=== PATIENT | female | born 1935 | race Caucasian/White ===

== ENCOUNTER → 2016-11-15 | Outpatient (CLI) | payer OTHER ==
[2015-10-11 14:00] VITALS: BP 161/72
[2016-11-20 06:08] LABS: COPPER LEVEL 124 ug/dL (80-155)
[2016-11-20 06:09] LABS: ZINC PLASMA 77 ug/dL (60-120)
== END ==
LOC: LAB 15:11
PROVIDERS: ATTEND Obstetrics & Gynecology Obstetrics
DX: F41.8 Other specified anxiety disorders (principal)
CPT/HCPCS: 36415; 82525; 84630

== ENCOUNTER → 2017-01-28 | Outpatient (CLI) | payer OTHER ==
[2015-10-11 14:00] VITALS: BP 161/72
--- NOTE | 2017-01-29 16:23 | MG ---
HISTORY: SCREENING Comparison: January 26, 2015 and February 02, 2016 FINDINGS: Bilateral CC and MLO projections of the right and left breast were obtained. Extremely dense fibrogl andular tissue is seen to be present without significant interval change. No suspicious architectura l distortion, mass or clustered microcalcifications can be observed to suggest malignancy. No skin t hickening or nipple retraction is appreciated. No pathological lymphadenopathy can be identified. B enign-appearing calcifications are noted within the right and left breast. IMPRESSION: NO RADIOGRAPHIC EVIDENCE OF MALIGNANCY. ACR CATEGORY 2 - benign findings. FOLLOW-UP EXAM 1 YEAR. Diagnostic CAD was utilized and reviewed. * 0 (ZERO) - ASSESSMENT INCOMPLETE; ADDITIONAL IMAGING IS NEEDED. * 1/1 (ONE) - NEGATIVE. * 2/II (TWO) - BENIGN FINDINGS. * 3/III (THREE) - PROBABLY BENIGN FINDING; SHORT INTERVAL FOLLOW-UP SUGGESTED. * 4/IV (FOUR) - SUSPICIOUS ABNORMALITY; BIOPSY SHOULD BE CONSIDERED. * 5/V - HIGHLY SUSPICIOUS OF MALIGNANCY; BIOPSY SHOULD BE PERFORMED. A NEGATIVE X-RAY REPORT SHOULD NOT DELAY BIOPSY IF A DOMINANT OR CLINICALLY SUSPICIOUS MASS IS PRESENT; 4 TO 8 PERCENT OF CANCERS ARE NOT IDENTIFIED BY X-RAY. A NEGA TIVE REPORT MAY REINFORCE THE CLINICAL IMPRESSION. ADENOSIS AND DENSE BREASTS MAY OBSCURE AN UNDERLY ING NEOPLASM. Reported By:
== END ==
LOC: RAD 14:48
PROVIDERS: ATTEND Specialist
DX: Z12.31 Encounter for screening mammogram for malignant neoplasm of breast (principal)
CPT/HCPCS: 77067

== ENCOUNTER → 2017-03-21 | Outpatient (CLI) | payer OTHER ==
[2015-10-11 14:00] VITALS: BP 161/72
[2017-03-21 09:08] LABS: BASOPHILS # (AUTO) 0.1 X10^3/uL (0.0-0.1); EOSINOPHILS # (AUTO) 0.2 x10^3/uL (0.0-0.2); HEMATOCRIT 33.7 % (36.0-47.0); HEMOGLOBIN 11.6 g/dL (12.0-16.0); LYMPHOCYTES # (AUTO) 1.4 X10^3/uL (1.3-2.9); LYMPHOCYTES % (AUTO) 35.8 % (21.0-51.0); MEAN CORPUSCULAR HEMOGLOBIN 32.5 pg (27.0-34.0); MEAN CORPUSCULAR HGB CONC 34.3 g/dL (33.0-35.0); MEAN CORPUSCULAR VOLUME 94.7 fL (80.0-100.0); MEAN PLATELET VOLUME 8.2 fL (7.4-11.0); MONOCYTES # (AUTO) 0.4 x10^3/uL (0.3-0.8); MONOCYTES % (AUTO) 9.2 % (0.0-13.0); NEUTROPHILS # (AUTO) 1.9 x10^3/uL (2.2-4.8); PLATELET COUNT 173 X10^3/uL (150.0-450.0); RED BLOOD COUNT 3.56 X10^6/uL (3.5-5.4); WHITE BLOOD COUNT 3.9 X10^3/uL (3.6-10.0)
[2017-03-21 09:28] LABS: ALANINE AMINOTRANSFERASE 30 Units/L (12-78); ALBUMIN 4.2 g/dL (3.4-5.0); ALKALINE PHOSPHATASE 76 Units/L (46-116); ASPARTATE AMINO TRANSFERASE 19 Units/L (15-37); BLOOD UREA NITROGEN 12 mg/dL (7-18); CALCIUM 8.7 mg/dL (8.5-10.1); CARBON DIOXIDE 29.4 mmol/L (21-32); CHLORIDE 105 mmol/L (98-107); CHOLESTEROL 183 mg/dL (0-200); CREATININE 0.99 mg/dL (0.55-1.02); HDL CHOLESTEROL 93 mg/dL (40-60); SODIUM 141 mmol/L (136-145); TOTAL PROTEIN 6.8 g/dL (6.4-8.2); TRIGLYCERIDES 41 mg/dL (0-150); TSH (3RD GENERATION) 0.816 uIU/mL (0.358-3.74); eGFR BLACK RACES > 60 (>60); eGFR NON BLACK RACES 57 (>60)
[2017-03-21 09:43] LABS: HEMOGLOBIN A1C 5.6 %
== END ==
LOC: LAB 08:37
PROVIDERS: ATTEND Obstetrics & Gynecology Obstetrics
DX: R63.8 Other symptoms and signs concerning food and fluid intake (principal); E03.8 Other specified hypothyroidism
CPT/HCPCS: 36415; 80053; 80061; 83036; 84443; 84481; 84482; 85025

== ENCOUNTER → 2017-06-18 | Outpatient (CLI) | payer OTHER ==
[2015-10-11 14:00] VITALS: BP 161/72
--- NOTE | 2017-06-18 14:31 | CT ---
CT pelvis without contrast Indication: Left hip pain, fall this morning. Comparison: None Technique: CT images of the pelvis were obtained without contrast. Automatic exposure control was uti lized. Findings: There is acute/subacute functional fracture of the lateral left sacral ala, without signifi cant displacement. There is also nondisplaced fracture of the left puboacetabular junction and 2 part minimally displaced fracture of the left inferior pubic ramus. The pubic symphysis and SI joints are intact, demonstrating minimal degenerative change. The bones are diffusely osteopenic. There is goyo ed lower lumbar spondylosis, especially along the left lateral aspect of the L4-5 disc space. The fem oral heads are normally positioned within the acetabula. No acute proximal femur fracture. Moderate c olonic stool burden is noted, suggesting constipation. Impression: Acute/subacute fractures of the left sacral ala, left puboacetabular junction, and left inferior pubi c ramus. No acute hip fracture. Generalized osteopenia. Degenerative changes as above. Reported By:
== END | disposition home or self-care (01) ==
LOC: RAD 13:49
PROVIDERS: ATTEND Obstetrics & Gynecology Obstetrics
DX: M25.552 Pain in left hip (principal); S32.492A Other specified fracture of left acetabulum, initial encounter for closed fracture; S32.592A Other specified fracture of left pubis, initial encounter for closed fracture; S32.19XA Other fracture of sacrum, initial encounter for closed fracture; X58.XXXA Exposure to other specified factors, initial encounter; M85.88 Other specified disorders of bone density and structure, other site
CPT/HCPCS: 72192

== ENCOUNTER 2024-10-09 06:24 | Observation (INO) ==
[2024-10-09 06:55] LABS: RED CELL DISTRIBUTION WIDTH 13.0 % (11.6-16.5)
[2024-10-09 06:58] LABS: MEAN PLATELET VOLUME 8.6 fL (7.4-11.0)
[2024-10-09 07:01] LABS: INR 1.07 (0.8-1.3)
[2024-10-09 07:08] LABS: CREATININE 0.95 mg/dL (0.55-1.02); eGFR NON BLACK RACES 59 (>60)
--- NOTE | 2024-10-09 07:22 | EKG ---
Test Reason : weakness Blood Pressure : */* mmHG Vent. Rate : 75 BPM Atrial Rate : 75 BPM P-R Int : 170 ms QRS Dur : 86 ms QT Int : 386 ms P-R-T Axes : 66 72 64 degrees QTc Int : 431 ms Normal sinus rhythm Moderate voltage criteria for LVH, may be normal variant ( Sokolow-Jackson , [place] product ) Nonspecific ST abnormality Abnormal ECG When compared with ECG of 26-MAR-2022 19:24, ST no longer depressed in Anterior leads Nonspecific T wave abnormality no longer evident in Inferior leads T wave inversion no longer evident in Lateral leads Confirmed by Alberto Aguayo MD ([id number]) on 10/09/2024 4:13:10 PM Referred By: Confirmed By: Alberto Aguayo MD
--- NOTE | 2024-10-09 07:22 | DR.GENAD ---
HPI <David Knapp - Last Filed: 10/09/24 07:55> Time Seen Time Seen by Provider: 10/09/24 07:20 PCP Primary Care Physician: Dr. Tijerina Complaint/Symptoms Chief Complaint Doctors Comments: Patient has increased weakness and decreased mobility over the past 1 to 2-month patient has had frequent falls and sometimes maybe a year or 2 ago she has had right hip replacement seem like she has been having issues with that. In 2 her she has been not ambulatory over the past 1 to 2 months where she been crawling around in the house again from 1 place to another. She states she has fallen and hit her head in the past. Chief Complaint:: Pt c/o increased weakness with decreased mobility over the past 1-2 months. Pt has also had frequent falls. Pt lives with her elderly sister who is unable to care for her. Pt states that she has been crawling to the bathroom as she is unable to walk. Pt c/o pain in the right groin that has been going on for about a month. Pt states that she has hit her head and had loss of consciousness during some of her falls over the past month. COVID-19 Coronavirus risk:travel/contact w/high risk person: No Has patient experienced Coronavirus symptoms: No Source History Provided: Patient and EMS Mode of Arrival Mode of Arrival: EMS Timing Onset of Chief Complaint: 10/09/24 PMH <David Knapp - Last Filed: 10/09/24 07:55> PMH Past Medical History: Yes Past Medical History: Anxiety, Arthritis, Depression, Diabetes, GERD and Hypothyroidism Past Medical History Comment: uterine cancer, skin cancer, restless leg syndrome, insomnia Past Surgical History: Yes Surgical History: Joint Replacement and Other Past Surgical History Comment: right hip replacement, tubal ligation, skin cancer removed Family History History of Family Medical Conditions: Yes Family Medical History: Diabetes Mellitus and Cancer Family Medical History Comment: depression Social History Does patient currently use any type of tobacco product: No Have you used tobacco products in the last 12 months: No Type of Tobacco Use: None Does any household member use tobacco: No Alcohol Use: None Do you use any recreational Drugs:: No Lives With: Family Lives Where: Home Travel Risk Coronavirus risk:travel/contact w/high risk person: No Has patient experienced Coronavirus symptoms: No Infectious screening In the last 2 months have you had wt loss of >10#?: NO Have you had fever, night sweats or hemotysis?: No Have you traveled outside the country in the last 6 months?: No Isolation: Standard ROS <David Knapp - Last Filed: 10/09/24 07:55> Review of Systems Constitutional: Other (total body pain but mostly r hip/pelvic pain) Eyes: No Symptoms Reported ENTM: No Symptoms Reported Respiratoy: No Symptoms Reported Cardiovascular: No Symptoms Reported Gastrointestinal/Abdominal: No Symptoms Reported Genitourinary: No Symptoms Reported Neurological: No Symptoms Reported Musculoskeletal: Joint Pain, Neck Pain and Hip (r hip pain) Integumentary: No Symptoms Reported Hematologic/Lymphatic: No Symptoms Reported Endocrine: No Symptoms Reported Psychiatric: No Symptoms Reported All Other Systems: Reviewed and Negative PE <David Knapp - Last Filed: 10/09/24 07:55> Vital Signs Vitals: Vital Signs Temperature 97.9 F Pulse Rate 74 Pulse Rate 75 Pulse Rate 75 Pulse Rate 77 Pulse Rate 77 Pulse Rate 81 Respiratory Rate 20 Blood Pressure 175/76 Blood Pressure 151/68 O2 Sat by Pulse Oximetry 100 O2 Sat by Pulse Oximetry 100 O2 Sat by Pulse Oximetry 100 O2 Sat by Pulse Oximetry 100 O2 Sat by Pulse Oximetry 100 O2 Sat by Pulse Oximetry 100 General Limitations: Physical Limitation (due to r hip pain and lethargy) General Appearance: Alert and In Distress (moderate distress) Head Head Exam: Normal Inspection, Atraumatic and Normocephalic Eyes Eye exam: Normal Appearance ENT ENT Exam: Normal Exam External Ear Exam: Normal External Inspection TM/Canal Exam: Bilateral: Normal Nose Exam: Normal Nose Exam Mouth Exam: Normal Inspection Throat Exam: Normal Inspection Neck Neck Exam: Normal Inspection Chest Chest Inspection: Normal Inspection and Symmetric Chest Wall Rise Abdominal Exam Abdominal Exam: Normal Inspection, Normal Bowel Sounds and Soft Extremities Extremities Exam: Normal Inspection and Full ROM Back Back Exam: Normal Inspection and Full ROM Neurologic Neurological Exam: Alert and Oriented X3 Psychiatric Psychiatric Exam: Normal Affect Skin Skin Exam: Warm, Dry, Intact and Other (scabbed bruises on bilateral shins) <Ant Retana - Last Filed: 10/09/24 08:30> Vital Signs Vitals: Vital Signs Temperature 97.9 F Pulse Rate 74 Pulse Rate 75 Pulse Rate 75 Pulse Rate 77 Pulse Rate 77 Pulse Rate 81 Respiratory Rate 20 Blood Pressure 175/76 Blood Pressure 151/68 O2 Sat by Pulse Oximetry 100 O2 Sat by Pulse Oximetry 100 O2 Sat by Pulse Oximetry 100 O2 Sat by Pulse Oximetry 100 O2 Sat by Pulse Oximetry 100 O2 Sat by Pulse Oximetry 100 MDM <David Knapp - Last Filed: 10/09/24 07:55> Differential Diagnosis Differential Diagnosis: contusion to head and neck,contusion to r hip,cervical strain,dehydra,uti COURSE <David Knapp - Last Filed: 10/09/24 07:55> Treatment Treatment: This patient remained relatively stable during ER visit. We did do CT scan of her brain that was negative for fracture, get CT scan of her C-spine that was negative for fracture but there was straightening of the lordosis suggested a muscle spasm. The patient has CT scan abdomen pelvis that shows a large colonic stool burden with probable constipation and evidence of subacute healing right superior and inferior pubic ramus fractures. Patient had a urinalysis that was negative EKG showed sinus rhythm. This patient was signed out to Dr. Ellis. <Ant Retana - Last Filed: 10/09/24 08:30> Treatment Treatment: This patient remained relatively stable during ER visit. We did do CT scan of her brain that was negative for fracture, get CT scan of her C-spine that was negative for fracture but there was straightening of the lordosis suggested a muscle spasm. The patient has CT scan abdomen pelvis that shows a large colonic stool burden with probable constipation and evidence of subacute healing right superior and inferior pubic ramus fractures. Patient had a urinalysis that was negative EKG showed sinus rhythm. This patient was signed out to Dr. Ellis. Mazin -patient signed out to me by Dr. Knapp. Reviewed results of imaging and labs and discussed results with patient. Patient failing to thrive at home with major mobility issues. Patient agreeable to be admitted for placement for rehab. Consultation Consultation Comments: Discussed case with Dr. Tijerina and he is agreeable to admission ROR <David Knapp - Last Filed: 10/09/24 07:55> Labs Reviewed 10/09/24 06:42 10/09/24 06:42 Laboratory: WBC 5.0 X10^3/uL (3.6-10.0) 10/09/24 06:42 RBC 3.34 X10^6/uL (3.5-5.4) L 10/09/24 06:42 Hgb 11.3 g/dL (12.0-16.0) L 10/09/24 06:42 Hct 32.3 % (36.0-47.0) L 10/09/24 06:42 MCV 96.6 fL (80.0-100.0) 10/09/24 06:42 MCH 33.9 pg (27.0-34.0) 10/09/24 06:42 MCHC 35.1 g/dL (33.0-35.0) H 10/09/24 06:42 RDW 13.0 % (11.6-16.5) 10/09/24 06:42 Plt Count 235 X10^3/uL (150.0-450.0) 10/09/24 06:42 MPV 8.6 fL (7.4-11.0) 10/09/24 06:42 Neut % (Auto) 57.7 % (42.0-75.0) 10/09/24 06:42 Lymph % (Auto) 27.0 % (21.0-51.0) 10/09/24 06:42 [place] % (Auto) 9.5 % (0.0-13.0) 10/09/24 06:42 Eos % (Auto) 3.7 % (0.9-2.9) H 10/09/24 06:42 Baso % (Auto) 2.1 % (0.2-1.0) H 10/09/24 06:42 Neut # (Auto) 2.9 x10^3/uL (2.2-4.8) 10/09/24 06:42 Lymph # (Auto) 1.3 X10^3/uL (1.3-2.9) 10/09/24 06:42 [place] # (Auto) 0.5 x10^3/uL (0.3-0.8) 10/09/24 06:42 Eos # (Auto) 0.2 x10^3/uL (0.0-0.2) 10/09/24 06:42 Baso # (Auto) 0.1 X10^3/uL (0.0-0.1) 10/09/24 06:42 Absolute Nucleated RBC 0.0 /100WBC 10/09/24 06:42 PT 14.0 SECONDS (11.8-14.3) 10/09/24 06:42 INR Target Range - 10/09/24 06:42 INR 1.07 (0.8-1.3) 10/09/24 06:42 APTT 28.1 SECONDS (22.9-36.5) 10/09/24 06:42 PTT Comment - 10/09/24 06:42 Sodium 140 mmol/L (136-145) 10/09/24 06:42 Corrected Sodium TNP 10/09/24 06:42 Potassium 4.1 mmol/L (3.5-5.1) 10/09/24 06:42 Chloride 106 mmol/L (98-107) 10/09/24 06:42 Carbon Dioxide 30.0 mmol/L (21-32) 10/09/24 06:42 BUN 13 mg/dL (7-18) 10/09/24 06:42 Creatinine 0.95 mg/dL (0.55-1.02) 10/09/24 06:42 Est GFR (MDRD) Af Amer > 60 (>60) 10/09/24 06:42 Est GFR (MDRD) Non-Af 59 (>60) 10/09/24 06:42 Glucose 87 mg/dL (65-99) 10/09/24 06:42 Calcium 9.1 mg/dL (8.5-10.1) 10/09/24 06:42 Corrected Calcium TNP 10/09/24 06:42 Total Bilirubin 0.30 mg/dL (0.2-1.0) 10/09/24 06:42 AST 28 Units/L (15-37) 10/09/24 06:42 ALT 33 Units/L (12-78) 10/09/24 06:42 Alkaline Phosphatase 148 Units/L (46-116) H 10/09/24 06:42 Creatine Kinase 180 Units/L (26-192) 10/09/24 06:42 Troponin I High Sens 6.3 ng/L (4.0-60.0) 10/09/24 06:42 Total Protein 7.2 g/dL (6.4-8.2) 10/09/24 06:42 Albumin 3.9 g/dL (3.4-5.0) 10/09/24 06:42 Globulin 3.3 g/dL (2.5-4.5) 10/09/24 06:42 Albumin/Globulin Ratio 1.2 Ratio (1.1-2.1) 10/09/24 06:42 Specimen Type Clean catch urine 10/09/24 07:20 Urine Color Yellow (YELLOW) 10/09/24 07:20 Urine Appearance Clear (CLEAR) 10/09/24 07:20 Urine pH 7.0 (5.0 - 8.0) 10/09/24 07:20 Ur Specific [place] 1.010 (1.000-1.030) 10/09/24 07:20 Urine Protein 1+ (NEGATIVE) 10/09/24 07:20 Urine Glucose (UA) Negative (NEGATIVE) 10/09/24 07:20 Urine Ketones Negative (NEGATIVE) 10/09/24 07:20 Urine Blood Negative (NEGATIVE) 10/09/24 07:20 Urine Nitrite Negative (NEGATIVE) 10/09/24 07:20 Urine Bilirubin Negative (NEGATIVE) 10/09/24 07:20 Urine Urobilinogen Normal (NORMAL) 10/09/24 07:20 Ur Leukocyte Esterase Negative (NEGATIVE) 10/09/24 07:20 Urine RBC None seen /HPF (0-3) 10/09/24 07:20 Urine WBC 0-2 /HPF (0-5) 10/09/24 07:20 Ur Squamous Epith Cells Rare /HPF (NEGATIVE) 10/09/24 07:20 Urine Bacteria Negative /HPF (NEGATIVE) 10/09/24 07:20 Ur Culture Indicated? No/not indicated 10/09/24 07:20 <Ant Retana - Last Filed: 10/09/24 08:30> Labs Reviewed Laboratory: WBC 5.0 X10^3/uL (3.6-10.0) 10/09/24 06:42 RBC 3.34 X10^6/uL (3.5-5.4) L 10/09/24 06:42 Hgb 11.3 g/dL (12.0-16.0) L 10/09/24 06:42 Hct 32.3 % (36.0-47.0) L 10/09/24 06:42 MCV 96.6 fL (80.0-100.0) 10/09/24 06:42 MCH 33.9 pg (27.0-34.0) 10/09/24 06:42 MCHC 35.1 g/dL (33.0-35.0) H 10/09/24 06:42 RDW 13.0 % (11.6-16.5) 10/09/24 06:42 Plt Count 235 X10^3/uL (150.0-450.0) 10/09/24 06:42 MPV 8.6 fL (7.4-11.0) 10/09/24 06:42 Neut % (Auto) 57.7 % (42.0-75.0) 10/09/24 06:42 Lymph % (Auto) 27.0 % (21.0-51.0) 10/09/24 06:42 [place] % (Auto) 9.5 % (0.0-13.0) 10/09/24 06:42 Eos % (Auto) 3.7 % (0.9-2.9) H 10/09/24 06:42 Baso % (Auto) 2.1 % (0.2-1.0) H 10/09/24 06:42 Neut # (Auto) 2.9 x10^3/uL (2.2-4.8) 10/09/24 06:42 Lymph # (Auto) 1.3 X10^3/uL (1.3-2.9) 10/09/24 06:42 [place] # (Auto) 0.5 x10^3/uL (0.3-0.8) 10/09/24 06:42 Eos # (Auto) 0.2 x10^3/uL (0.0-0.2) 10/09/24 06:42 Baso # (Auto) 0.1 X10^3/uL (0.0-0.1) 10/09/24 06:42 Absolute Nucleated RBC 0.0 /100WBC 10/09/24 06:42 PT 14.0 SECONDS (11.8-14.3) 10/09/24 06:42 INR Target Range - 10/09/24 06:42 INR 1.07 (0.8-1.3) 10/09/24 06:42 APTT 28.1 SECONDS (22.9-36.5) 10/09/24 06:42 PTT Comment - 10/09/24 06:42 Sodium 140 mmol/L (136-145) 10/09/24 06:42 Corrected Sodium TNP 10/09/24 06:42 Potassium 4.1 mmol/L (3.5-5.1) 10/09/24 06:42 Chloride 106 mmol/L (98-107) 10/09/24 06:42 Carbon Dioxide 30.0 mmol/L (21-32) 10/09/24 06:42 BUN 13 mg/dL (7-18) 10/09/24 06:42 Creatinine 0.95 mg/dL (0.55-1.02) 10/09/24 06:42 Est GFR (MDRD) Af Amer > 60 (>60) 10/09/24 06:42 Est GFR (MDRD) Non-Af 59 (>60) 10/09/24 06:42 Glucose 87 mg/dL (65-99) 10/09/24 06:42 Calcium 9.1 mg/dL (8.5-10.1) 10/09/24 06:42 Corrected Calcium TNP 10/09/24 06:42 Total Bilirubin 0.30 mg/dL (0.2-1.0) 10/09/24 06:42 AST 28 Units/L (15-37) 10/09/24 06:42 ALT 33 Units/L (12-78) 10/09/24 06:42 Alkaline Phosphatase 148 Units/L (46-116) H 10/09/24 06:42 Creatine Kinase 180 Units/L (26-192) 10/09/24 06:42 Troponin I High Sens 6.3 ng/L (4.0-60.0) 10/09/24 06:42 Total Protein 7.2 g/dL (6.4-8.2) 10/09/24 06:42 Albumin 3.9 g/dL (3.4-5.0) 10/09/24 06:42 Globulin 3.3 g/dL (2.5-4.5) 10/09/24 06:42 Albumin/Globulin Ratio 1.2 Ratio (1.1-2.1) 10/09/24 06:42 Specimen Type Clean catch urine 10/09/24 07:20 Urine Color Yellow (YELLOW) 10/09/24 07:20 Urine Appearance Clear (CLEAR) 10/09/24 07:20 Urine pH 7.0 (5.0 - 8.0) 10/09/24 07:20 Ur Specific [place] 1.010 (1.000-1.030) 10/09/24 07:20 Urine Protein 1+ (NEGATIVE) 10/09/24 07:20 Urine Glucose (UA) Negative (NEGATIVE) 10/09/24 07:20 Urine Ketones Negative (NEGATIVE) 10/09/24 07:20 Urine Blood Negative (NEGATIVE) 10/09/24 07:20 Urine Nitrite Negative (NEGATIVE) 10/09/24 07:20 Urine Bilirubin Negative (NEGATIVE) 10/09/24 07:20 Urine Urobilinogen Normal (NORMAL) 10/09/24 07:20 Ur Leukocyte Esterase Negative (NEGATIVE) 10/09/24 07:20 Urine RBC None seen /HPF (0-3) 10/09/24 07:20 Urine WBC 0-2 /HPF (0-5) 10/09/24 07:20 Ur Squamous Epith Cells Rare /HPF (NEGATIVE) 10/09/24 07:20 Urine Bacteria Negative /HPF (NEGATIVE) 10/09/24 07:20 Ur Culture Indicated? No/not indicated 10/09/24 07:20 Opioid <David Knapp - Last Filed: 10/09/24 07:55> Opioid Risk Tool Age (Juma box if 16-45): No History of Preadolescent Sexual Abuse: No Total: 0 Total Score Risk Category: Low Risk Copyright: Grady TAYLOR predicting aberrant behaviors <Ant Retana - Last Filed: 10/09/24 08:30> Opioid Risk Tool Total: 0 Total Score Risk Category: Low Risk Discharge Plan Diagnosis Discharge Problem: Adult failure to thrive Closed pelvic fracture Qualifiers: Encounter type: initial encounter Pelvic bone location: pubis Fracture alignment: nondisplaced Discharge Plan Patient Disposition: 09 ADMITTED INPATIENT Condition: Stable Prescriptions: No Action trazodone 50 mg tablet 1 - 3 tab PO QPM PRN meloxicam 15 mg tablet 15 mg PO QDAY gabapentin 800 mg tablet 800 mg PO QID ropinirole 0.5 mg tablet 0.5 mg PO BID topiramate 100 mg tablet 100 mg PO BID bupropion HCl 200 mg tablet sustained-release 12 hr 200 mg PO BID Health Concerns: Post Hospitalization: new medications and changes needed to prevent readmission or further decline. Pt educated and given instructions on all concerns. Plan of Treatment: Continue with present treatment and follow up plan. Pt is to keep follow up appointment as instructed and take medications as ordered. Orders to Discharge Patient Discharge Orders: Transfer (Routine); Ordered 10/09/24 Ordered By: Ant Retana Follow ups/Referrals Follow ups/Referrals: NELLA ITJERINA [Primary Care Provider, MEDICAL] - 3 days Instructions Stand Alone Forms: Find Help Web Site, Post Hospital Follow Up Care Print Language: MOROCCAN
[2024-10-09 07:29] LABS: BLOOD/HEMOGLOBIN,URINE NEGATIVE (NEGATIVE); LEUKOCYTE ESTERASE ,URINE NEGATIVE (NEGATIVE); NITRITES,URINE NEGATIVE (NEGATIVE)
--- NOTE | 2024-10-09 07:33 | CT ---
EXAMINATION: CERVICAL SPINE W/O CON HISTORY: fall with LOC; . COMPARISON STUDY: None. TECHNIQUE: Images were obtained in the axial plane through the cervical spine. Sagittal and coronal reformatted images were obtained as well. The above CT scan was done with automated exposure control and the mA and kV was adjusted to obtain quality images according to patient size. FINDINGS: Motion artifact. Vertebral body heights are maintained throughout. 2 mm of anterolisthesis of C3 on C4 is related to facet arthropathy. Prevertebral soft tissues are maintained. Paraspinal soft tissues are unremarkable. There are no burst type fractures. There is no abnormal density to suggest epidural hematoma. There is no significant stenosis. There is no noncontrast CT evidence for traumatically herniated disc. No osteolytic or osteoblastic lesions are noted. There are anterior osteophytes with disc space narrowing from C3-C7. Facet arthropathy with uncovertebral joint hypertrophy and neural foraminal narrowing of varying degrees at multiple levels. Straightening of lordosis suggesting muscle spasm. Apical scarring. No apical pneumothorax. Vascular calcification in the carotids. IMPRESSION: No acute bony process. Multilevel degenerative disc disease THIS IS AN ELECTRONICALLY VERIFIED FINAL REPORT 10/09/2024 7:29 AM - Electronically signed by Arsh Rouse MD
--- NOTE | 2024-10-09 07:33 | CT ---
EXAM: BRAIN W/O CON HISTORY: fall with LOC; COMPARISON: 03/26/2022 TECHNIQUE: CT of the head obtained without IV contrast. Sagittal and coronal reformatted images were performed. Dose reduction techniques including Automated Exposure Control (AEC) and adjustment of mA and kV were utilized. FINDINGS: No evidence of acute territorial infarct. No acute intracranial hemorrhage. No evidence of intracranial mass or midline shift. No hydrocephalus. No abnormal intra or extra-axial fluid collections. Chronic small vessel ischemic changes and global volume loss with commensurate ventricular dilatation. The calvaria is intact. The bilateral mastoid air cells and visualized paranasal sinuses are well pneumatized. The bilateral orbits are unremarkable. IMPRESSION: No acute intracranial findings. THIS IS AN ELECTRONICALLY VERIFIED FINAL REPORT 10/09/2024 7:27 AM - Electronically signed by Guillermo Casarez MD
--- NOTE | 2024-10-09 07:36 | CT ---
EXAM: ABDOMEN/PELVIS W/O CON HISTORY: fall with LOC, rt groin pain ; COMPARISON: 02/14/2020 TECHNIQUE: CT of the abdomen and pelvis obtained without IV contrast. Study limited due to lack of IV contrast and positioning. Dose reduction techniques including Automated Exposure Control (AEC) and adjustment of mA and kV were utilized. FINDINGS: The visualized portions of the lower thorax demonstrate no acute process. Right basilar scarring or atelectasis. No acute osseous abnormality. Multilevel degenerative changes in the visualized spine. Right hip arthroplasty hardware. Remote deformities left superior and inferior pubic ramus. Subacute/healing right superior and inferior pubic ramus fractures. The liver, gallbladder, spleen, pancreas, bilateral adrenal glands, and right kidney demonstrate no acute process given lack of IV contrast. Possible left hydronephrosis. No evidence of obstructing renal ureteral stone No evidence of bowel obstruction. The appendix is not definitively visualized. No secondary signs of appendicitis. Large amount of stool in the colon. The bladder is unremarkable. No free air. Small volume free fluid in the abdomen and pelvis. Nonaneurysmal aorta. IMPRESSION: Large colonic fecal burden with probable constipation. Subacute/healing right superior and inferior pubic ramus fractures. THIS IS AN ELECTRONICALLY VERIFIED FINAL REPORT 10/09/2024 7:33 AM - Electronically signed by Guillermo Casarez MD
[2024-10-09 07:43] LABS: APPEARANCE,URINE CLEAR (CLEAR); SQUAMOUS EPITHELIAL CELL,UR RARE /HPF (NEGATIVE)
[2024-10-09] MEDS ORDERED: TYLENOL 325 MG TAB PO PRN (09:00)
[2024-10-09] MEDS ORDERED: CONSULT PHARMACY - POTASSIUM & MAGNESIUM XX SCH (09:00)
[2024-10-09] MEDS ORDERED: BUPROPION PO SCH (09:00)
[2024-10-09] MEDS: MOBIC TAB 15 MG PO SCH (09:35)
[2024-10-09] MEDS: REQUIP PO SCH (09:35)
[2024-10-09] MEDS: NEURONTIN CAP 400 MG PO SCH (09:35)
[2024-10-09] MEDS: TOPAMAX TAB 100 MG PO SCH (09:35)
[2024-10-09] MEDS: WELLBUTRIN IR (PLAIN) PO SCH (09:53)
[2024-10-09] MEDS: NORCO 5/325 MG TAB PO PRN (10:29)
[2024-10-09] MEDS: ULTRAM PO PRN (17:00)
[2024-10-09] MEDS: MILK OF MAGNESIA PO ONE (21:02)
[2024-10-09] MEDS: COLACE CAP 100 MG PO SCH (21:02)
[2024-10-09] MEDS: DESYREL PO PRN (21:02)
[2024-10-10 04:51] LABS: MEAN PLATELET VOLUME 9.0 fL (7.4-11.0); RED CELL DISTRIBUTION WIDTH 13.1 % (11.6-16.5)
[2024-10-10 05:01] LABS: CREATININE 0.79 mg/dL (0.55-1.02); eGFR NON BLACK RACES > 60 (>60)
[2024-10-10] MEDS: MILK OF MAGNESIA PO SCH (08:22)
--- NOTE | 2024-10-10 12:00 | NOTE.SOAP ---
Soap Note Note for Day of Date of Exam: 10/10/24 Subjective Data Subjective Data: Patient denies any complaints other than pelvic soreness. Staff deny any acute events overnight. And for pain control and therapy following subacute inferior and superior right rami fractures. Objective Data Objective Data: Thin, elderly female in no acute distress. Hearing intact conversation, head NCAT, EOMI. Heart regular rate rhythm with clear lungs. Belly is soft and nontender with bowel sounds present. Answers questions appropriately, mood and affect are appropriate. Assessment Assessment: 1. Right superior pubic ramus fx 2. Right inferior pubic ramus fracture 3. Generalized weakness. 4. Anemia of chronic disease. Plan Plan: Monitor labs. Vitals doing well. Anemia is stable. Rehab as tolerated. Pain control.
[2024-10-10 22:15] VITALS: BMI 16.2
[2024-10-11 05:19] LABS: MEAN PLATELET VOLUME 9.0 fL (7.4-11.0); RED CELL DISTRIBUTION WIDTH 13.2 % (11.6-16.5)
[2024-10-11 05:30] LABS: COR CA(FOR HYPOALB) 9.6 mg/dL (8.5-10.1); CREATININE 1.02 mg/dL (0.55-1.02); eGFR NON BLACK RACES 54 (>60)
[2024-10-11] MEDS ORDERED: ZOFRAN INJ 4 MG VIAL ONE (13:22)
[2024-10-11] MEDS: ZOFRAN INJ 4 MG VIAL IVP PRN (13:25)
[2024-10-11] MEDS: CHRONULAC PO ONE (15:32)
--- NOTE | 2024-10-11 16:00 | NOTE.SOAP ---
Soap Note Note for Day of Date of Exam: 10/11/24 Subjective Data Subjective Data: No acute events overnight. Was able to go to the restroom with two-person assist. Patient denies any issues other than tired of being in the bed. Objective Data Objective Data: Thin, elderly female in no acute distress. Heart regular rate and rhythm. Lungs are clear. Mood and affect appropriate. Assessment Assessment: 1. Right superior pubic ramus fx 2. Right inferior pubic ramus fracture 3. Generalized weakness. 4. Anemia of chronic disease. Plan Plan: Try to get out of bed more. No changes today. Continue current.
[2024-10-11] MEDS: MIRALAX POWDER (1 DOSE 17 G) PO SCH (20:48)
[2024-10-12 05:27] LABS: MEAN PLATELET VOLUME 8.3 fL (7.4-11.0); RED CELL DISTRIBUTION WIDTH 13.3 % (11.6-16.5)
[2024-10-12 05:39] LABS: CREATININE 0.99 mg/dL (0.55-1.02); eGFR NON BLACK RACES 56 (>60)
[2024-10-12] MEDS ORDERED: BUTT CREAM (COMPOUND) TOP PRN (09:03)
--- NOTE | 2024-10-12 18:13 | NOTE.SOAP ---
Soap Note Note for Day of Date of Exam: 10/12/24 Subjective Data Subjective Data: Patient currently ambulating with PT. Still sore in her pelvis but no events overnight. Objective Data Objective Data: Thin, elderly female in no acute distress. Standing with two-person assist. Heart regular rate and rhythm. Lungs clear. Assessment Assessment: 1. Right superior pubic ramus fx 2. Right inferior pubic ramus fracture 3. Generalized weakness. 4. Anemia of chronic disease. Plan Plan: Continue therapy. Plan on rehab placement.
[2024-10-13 04:56] LABS: MEAN PLATELET VOLUME 9.0 fL (7.4-11.0); RED CELL DISTRIBUTION WIDTH 13.1 % (11.6-16.5)
[2024-10-13 05:10] LABS: COR CA(FOR HYPOALB) 9.5 mg/dL (8.5-10.1); CREATININE 0.75 mg/dL (0.55-1.02); eGFR NON BLACK RACES > 60 (>60)
[2024-10-13] MEDS ORDERED: CONSULT PHARMACY - POTASSIUM & MAGNESIUM XX SCH (08:00)
[2024-10-13] MEDS: K-DUR TAB 20 MEQ PO SCH (08:28)
[2024-10-13] MEDS ORDERED: PHARMACY CONSULT XX SCH (09:00)
[2024-10-13] MEDS: LOVENOX INJ 40 MG SYR SC SCH (09:46)
[2024-10-13] MEDS: LINZESS PO SCH (10:56)
[2024-10-14 05:00] LABS: COR CA(FOR HYPOALB) 9.4 mg/dL (8.5-10.1); CREATININE 0.77 mg/dL (0.55-1.02); eGFR NON BLACK RACES > 60 (>60)
[2024-10-14 05:01] LABS: MEAN PLATELET VOLUME 9.0 fL (7.4-11.0); RED CELL DISTRIBUTION WIDTH 13.1 % (11.6-16.5)
[2024-10-14] MEDS ORDERED: MAALOX or MYLANTA ONE (20:29)
[2024-10-14] MEDS: MAALOX or MYLANTA PO PRN (20:52)
[2024-10-15 04:58] LABS: MEAN PLATELET VOLUME 8.8 fL (7.4-11.0); RED CELL DISTRIBUTION WIDTH 13.1 % (11.6-16.5)
[2024-10-15 05:10] LABS: COR CA(FOR HYPOALB) 9.4 mg/dL (8.5-10.1); CREATININE 0.83 mg/dL (0.55-1.02); eGFR NON BLACK RACES > 60 (>60)
[2024-10-15] MEDS ORDERED: CONSULT PHARMACY - POTASSIUM & MAGNESIUM XX SCH (07:00)
[2024-10-15] MEDS: K-DUR TAB 20 MEQ PO SCH (09:04)
[2024-10-15 10:15] VITALS: BP 136/64; PULSE 73; RESP 19; TEMP 98; O2SAT 96
== END 2024-10-15 12:30 ==
LOC: MED/SURG 06:24 → ER 06:24 → MED/SURG 09:15
PROVIDERS: ADMIT Obstetrics & Gynecology Obstetrics; ATTEND Obstetrics & Gynecology Obstetrics
DX: Y92.9 Unspecified place or not applicable; R26.89 Other abnormalities of gait and mobility; R94.31 Abnormal electrocardiogram [ECG] [EKG]; R53.1 Weakness; S32.511A Fracture of superior rim of right pubis, initial encounter for closed fracture; F41.8 Other specified anxiety disorders; R62.7 Adult failure to thrive; M48.00 Spinal stenosis, site unspecified; Z59.86 Financial insecurity; X58.XXXA Exposure to other specified factors, initial encounter; R26.81 Unsteadiness on feet; G25.81 Restless legs syndrome; E03.8 Other specified hypothyroidism; S30.810A Abrasion of lower back and pelvis, initial encounter; S32.591A Other specified fracture of right pubis, initial encounter for closed fracture; W18.39XA Other fall on same level, initial encounter; K21.9 Gastro-esophageal reflux disease without esophagitis; R74.8 Abnormal levels of other serum enzymes; R55 Syncope and collapse; M62.81 Muscle weakness (generalized)